=== PATIENT | female | born 1965 | race Caucasian/White ===

== ENCOUNTER 2024-02-24 15:34 | Outpatient (AMB) | payer OTHER, SELFPAY ==
--- NOTE | 2024-02-24 15:36 | MHC.OFFWIV ---
Intake Vital Signs 02/24/24 15:37 Height 5 ft 8 in Weight 135 lb BMI 20.5 BP 110/62 Blood Pressure Location Rt brachial Position Sitting Pulse 64 Pulse Source Pulse Oximeter Pulse Oximetry (%) 98 Oxygen Delivery Method Room Air Intake Visit Reasons: EP-rt ankle discomfort and pain Intake Note: Patient here for right ankle discomfort and pain, states she went for a walk on Thursday and woke up this morning with it swollen. pt states her toes were feeling warm the week prior but no swelling. Patient Tobacco Use Status: Former Tobacco user Allergies No Known Allergies Allergy (Verified 02/24/24 15:39) Do you need a note to return to daycare/school/sports/work: No HPI EP-rt ankle discomfort and pain HPI Details This note is constructed using voice recognition software. While every effort has been made to ensure accuracy, care consultant errors may have been included. The patient is a 58 year old female who presents to the clinic today with right ankle swelling and pain. She notes that she went [place] [employer] the [place], and went to the gym yesterday working out. She had pain and swelling on the lateral posterior malleolus starting last night, but improving with leg elevation. She did not take any medication. She denies any specific trauma or injury during her hikes. She denies any limping. [facility] Social History Patient Tobacco Use Status: Former Tobacco user Review of Systems Const All systems reviewed & are unremarkable except as noted in HPI and below Physical Exam Vital Signs: Last Vital Signs Pulse 64 02/24/24 15:37 BP 110/62 02/24/24 15:37 Pulse Ox 98 02/24/24 15:37 Oxygen Delivery Method Room Air 02/24/24 15:37 BMI result Body Mass Index 20.5 Const General: cooperative, healthy appearing, comfortable, no acute distress and alert Orientation/consciousness: patient oriented x3 Limitations: no limitations Resp Effort & Inspection: normal respiratory effort and able to speak in complete sentences Skin General skin exam: no rashes or lesions noted, elasticity normal and turgor normal Neuro General: patient oriented x3 Extrem Other: Slight swelling posterior malleolus, tender to palpation posterior malleolus and proximal aspect of 5th metatarsal. Ecchymosis present over the 4th and 5th metatarsal proximally. Full range of motion, strength 5/5. Distal neurovascular exam intact. General: Yes full ROM, Yes capillary refill normal and Yes normal exam except as noted Psych Appearance: grossly normal Mental Status: mental status grossly normal Speech and movement: Normal speech and movement present Affect: normal affect Results Reviewed Results Reviewed: XR images contemporaneously read by me with no findings of fracture. Assessment & Plan Assessment & Plan (1) Right ankle strain: Code(s): S96.911A - Strain of unspecified muscle and tendon at ankle and foot level, right foot, initial encounter Qualifiers: Encounter type: initial encounter Qualified Code(s): S96.911A - Strain of unspecified muscle and tendon at ankle and foot level, right foot, initial encounter Plan: X-rays reviewed, no obvious fracture on imaging. Advised rest, ice, compression, elevation. Lalo wrap applied. Advised follow up as needed with worsening or failure to resolve. Plan See above for full details and plan. Orders: Orders XR foot RT min 3V Today M25.571 - Pain in right ankle and joints of right foot, M79.671 - Pain in right foot Coding Level of Care Code Est Pt Level 4 (00350) Diagnoses Strain of right ankle, initial encounter S96.911A Encounter type: initial encounter
[2024-02-24 15:37] VITALS: BP 110/62; PULSE 64; O2SAT 98; BMI 20.5
== END 2024-02-24 16:15 | disposition home or self-care (01) ==
PROVIDERS: Visit Provider Registered Nurse
DX: S96.911A Strain of unspecified muscle and tendon at ankle and foot level, right foot, initial encounter (principal)

== ENCOUNTER → 2024-02-24 15:34 | Outpatient (BNVA) | payer OTHER, SELFPAY | PROVIDERS: Visit Provider Registered Nurse ==

== ENCOUNTER 2024-02-24 15:50 | Outpatient (REF) | payer OTHER, SELFPAY ==
--- NOTE | ~2024-02-24 | XR_ITS ---
EXAMINATION: XR FOOT, RIGHT CLINICAL INFORMATION: Pain in right ankle and joints of right foot. Ecchymosis and inflammation along top, lateral, and swelling lateral posterior malleolus COMPARISON: None available. TECHNIQUE: AP, lateral, and oblique views of the right foot. FINDINGS: Some mild degenerative changes are present at the interphalangeal joints as well as at the first MTP joint. Some enthesopathy is present at the insertion of the Achilles tendon. No fractures or dislocations are seen. XR/XR foot RT min 3V IMPRESSION: Mild degenerative changes. No evidence of an acute osseous injury. Electronically signed by: Tom Fernánedz MD 02/25/2024 10:30 AM EDT
== END 2024-02-24 15:51 | disposition home or self-care (01) ==
LOC: HO.HMGCX 15:50
PROVIDERS: Visit Provider Registered Nurse
DX: S96.911A Strain of unspecified muscle and tendon at ankle and foot level, right foot, initial encounter (principal)
CPT/HCPCS: 73630; 99212